=== PATIENT | female | born 1990 | race Caucasian/White ===

== ENCOUNTER 2023-05-01 06:06 | Emergency (ER) | payer BC ==
[~2023-05-01] VITALS: Ht 162.6 cm; Wt 49.9 kg
[2023-05-01 06:21] VITALS: TEMP 97.9
[2023-05-01] MEDS ORDERED: ELECTROLYTE,ORAL 1,000 ML BOTTLE ONE (06:37)
[2023-05-01] MEDS: ELECTROLYTE,ORAL 1,000 ML BOTTLE PO ONE (06:42)
[2023-05-01 06:59] VITALS: BP 112/76; O2SAT 98
== END 2023-05-01 07:05 | disposition home or self-care (01) ==
LOC: ER 06:20
DX: R42 Dizziness and giddiness (principal); Z88.8 Allergy status to other drugs, medicaments and biological substances